=== PATIENT | female | born 1980 | race African-American/Black ===

== ENCOUNTER 2021-04-17 08:44 | Emergency (ER) | payer OTHER ==
[~2021-04-17] VITALS: Ht 177.8 cm; Wt 99.8 kg
[2021-04-17] MEDS ORDERED: ENALAPRIL MALEAT5 MG PO (08:58)
== END 2021-04-17 14:47 | disposition home or self-care (01) ==
LOC: ER 08:44
DX: A05.9 Bacterial foodborne intoxication, unspecified (principal); K52.89 Other specified noninfective gastroenteritis and colitis